=== PATIENT | male | born 1995 | race Caucasian/White ===

== ENCOUNTER 2021-07-24 10:34 | Emergency (ER) | payer OTHER, SELFPAY ==
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
--- NOTE | 2021-07-24 10:40 | PC.NURSE ---
Intubated with size 4 ETT at 5.5 OD. Placement verified by breath sounds.
[2021-07-24 10:41] VITALS: BP 146/79; PULSE 112; RESP 18; TEMP 37.6; O2SAT 98
--- NOTE | 2021-07-24 10:43 | PC.NURSE ---
OG tube placed
--- NOTE | 2021-07-24 10:46 | PC.NURSE ---
Parents at bedside
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
--- NOTE | 2021-07-24 11:07 | PC.NURSE ---
pt taken back to room 1 and reports new pain that has started to his r hip. Dr Etienne of pt being in room to be seen.
[2021-07-24 11:31] LABS: Basophils Absolute Auto 0.1 K/mm3 (0.0-0.1); Basophils Percent Auto 1.2 % (0.2-1.2); Eosinophils Absolute Auto 0.1 K/mm3 (0-0.3); Eosinophils Percent Auto 1.7 % (0-4.4); Hematocrit 43.7 % (42.0-52.0); Hemoglobin 15.1 g/dL (14.0-18.0); Immature Granulocyte Absolute 0.02 K/mm3 (0.00-0.031); Immature Granulocyte Percent A 0.4 % (0-0.5); Lymphocytes Absolute Auto 1.37 K/mm3 (0.9-3.2); Lymphocytes Percent Auto 26.4 % (18.3-44.2); Mean Corpuscular HGB Conc 34.6 g/dl (32-36); Mean Corpuscular Hemoglobin 30.9 pg (26-34); Mean Corpuscular Volume 89.4 fl (80-100); Monocytes Absolute Auto 0.5 K/mm3 (0.1-0.6); Monocytes Percent Auto 9.1 % (2.6-8.5); Neutrophils Absolute Auto 3.2 K/mm3 (1.3-6.7); Neutrophils Percent Auto 61.2 % (45.5-73.1); Platelet Count Result 245 k/mm3 (150-375); Red Blood Count 4.89 M/mm3 (4.6-6.20); Red Cell Distribution Width 12.3 % (11.5-14.5); White Blood Count 5.2 K/mm3 (4.5-10.0)
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
[2021-07-24 11:40] LABS: Alanine Aminotransferase 16 U/L (4-50); Albumin Level 4.7 g/dL (3.5-5.1); Alkaline Phosphatase 54 U/L (38-126); Anion Gap 9 mmol/L (8-16); Aspartate Amino Transferase 24 U/L (17-59); Bilirubin,Total 0.4 mg/dL (0.2-1.3); Blood Urea Nitrogen 15 mg/dL (9-20); Calcium 9.8 mg/dL (8.4-10.2); Carbon Dioxide 23 mmol/L (22-30); Chloride 103 mmol/L (98-107); Estimated CRCL calculation 115 ml/min; Estimated Glomerular Filt Rate > 60; Glucose 101 mg/dL (65-110); Lipase 57 U/L (23-300); Potassium 3.4 mmol/L (3.4-5.0); Sodium 135 mmol/L (137-145)
[2021-07-24 11:46] LABS: Estimated CRCL calculation 167 ml/min; Estimated Glomerular Filt Rate > 60
[2021-07-24 11:47] LABS: Prothrombin Time 12.9 Seconds (11.1-14.7)
[2021-07-24 12:37] VITALS: BP 134/77; PULSE 72; RESP 18; O2SAT 98
== END 2021-07-24 12:39 | disposition home or self-care (01) ==
PROVIDERS: Physician Assistant; Emergency Provider Emergency Medicine; PCP Physician Assistant
DX: S22.070A Wedge compression fracture of T9-T10 vertebra, initial encounter for closed fracture (principal); F17.290 Nicotine dependence, other tobacco product, uncomplicated; V49.40XA Driver injured in collision with unspecified motor vehicles in traffic accident, initial encounter
CPT/HCPCS: 36415; 71260; 72125; 72129; 72132; 73030; 73060; 73502; 74177; 80053; 83690; 85025; 85610; 85730; 99284; Q9967

== ENCOUNTER 2022-05-14 14:24 | Emergency (ER) | payer OTHER, SELFPAY ==
[2022-05-14 14:30] VITALS: BP 125/80; PULSE 80; RESP 14; TEMP 37; O2SAT 100
[2022-05-14 14:36] VITALS: BP 125/80; PULSE 80; RESP 14; TEMP 37; O2SAT 100
--- NOTE | 2022-05-14 14:49 | ED.GENADULT ---
HPI - General Adult General Chief complaint: Dental/Oral Stated complaint: teeth pain Time Seen by Provider: 05/14/22 14:42 Source: patient Mode of arrival: ambulatory Limitations: no limitations History of Present Illness HPI narrative: Patient presents today complaining of right lower dental pain x2 weeks that has significantly worsened today. Denies any additional symptoms to include shortness of breath, difficulty swallowing, fever. Currently rates his pain 10/10 and has been taking Advil, Aleve, aspirin, and Orajel without relief. States his dentist has told him that all of his teeth need to be removed for dentures. Related Data Home Medications Medication Instructions Recorded Confirmed fluoxetine 20 mg tablet 20 mg PO DAILY 05/14/22 05/14/22 prazosin 1 mg capsule 1 mg PO HS 05/14/22 05/14/22 Allergies Allergy/AdvReac Type Severity Reaction Status Date / Time No Known Allergies Allergy Verified 05/14/22 14:32 Review of Systems Review of Systems: CONSTITUTIONAL: Denies body aches, fever, chills, or sweats. EYES: Denies visual changes, redness, or discharge. ENT: Denies rhinorrhea, congestion, sore throat, or otalgia.+ Dental pain CARDIOVASCULAR: Denies chest pain, palpitations, or edema. RESPIRATORY: Denies cough or dyspnea. GASTROINTESTINAL: Denies abdominal pain, nausea, vomiting, or diarrhea. GENITOURINARY: Denies dysuria or hematuria. SKIN: Denies rash, itching, or wounds. MUSCULOSKELETAL: Denies back pain, joint pain, or myalgia. NEUROLOGIC: Denies headache, numbness, tingling, or weakness. PSYCH: Denies depression or anxiety. [facility] Past Medical History Medical History (Updated 05/14/22 @ 14:53 by Eloisa Craig, JAMAR, ) PTSD (post-traumatic stress disorder) Social History Social History Smoking status: Current every day smoker Tobacco type: e-cigarettes/vaping Gender identity (if verbalized by the patient): Male Comments At time of signature, I have reviewed and agree with nursing past medical, surgical, social and family history unless otherwise noted. Please see nursing chart for further information. There is no relevant family history pertinent to the presenting complaint Exam Narrative: GENERAL: Well-appearing, well-nourished, and in no acute distress. HEAD: Normocephalic, atraumatic. EYES: EOMI. No redness or drainage. Conjunctivae normal. ENT: Mucous membranes pink and moist. Throat normal. Uvula midline. Affected tooth is #25 use. No obvious periapical abscess. Gingiva is grossly normal. Tooth is tender to palpation. No facial swelling. No trismus NECK: Normal AROM. Supple. No lymphadenopathy. CHEST: No respiratory distress. EXTREMITIES: Normal range of motion. No edema. SKIN: Warm, dry, no rash. Capillary refill normal. Normal skin turgor. NEURO: No focal deficits. Alert and oriented x3. Gait steady. PSYCH: Normal affect. No signs of depression or anxiety. Course Course Level of Care: Express Care Visit Vital Signs Vital signs: Vital Signs Temperature 98.6 F 05/14/22 14:30 Pulse Rate 80 05/14/22 14:30 Respiratory Rate 14 05/14/22 14:30 Blood Pressure 125/80 05/14/22 14:30 Pulse Oximetry 100 05/14/22 14:30 Oxygen Delivery Room Air 05/14/22 14:30 Temperature 98.6 F 05/14/22 14:36 Pulse Rate 80 05/14/22 14:36 Respiratory Rate 14 05/14/22 14:36 Blood Pressure 125/80 05/14/22 14:36 Pulse Oximetry 100 05/14/22 14:36 Oxygen Delivery Room Air 05/14/22 14:36 Reviewed. Pt has been instructed to follow up with his PCP regarding his elevated blood pressure today. Medical Decision Making Differential Diagnosis Differential Diagnosis: Dental abscess, dentalgia, cavity Vital Signs Vital Signs: Vital Signs Temperature 98.6 F 05/14/22 14:30 Pulse Rate 80 05/14/22 14:30 Respiratory Rate 14 05/14/22 14:30 Blood Pressure 125/80 05/14/22 14:
== END 2022-05-14 15:01 | disposition home or self-care (01) ==
PROVIDERS: Emergency Provider Nurse Practitioner; PCP Pediatrics
DX: K04.7 Periapical abscess without sinus (principal); F17.290 Nicotine dependence, other tobacco product, uncomplicated
CPT/HCPCS: 99213; G0463